=== PATIENT | female | born 1985 | race Caucasian/White ===

== ENCOUNTER 2020-03-20 05:26 | Inpatient (IN) ==
--- NOTE | 2020-03-19 12:36 | History & Physical Report ---
Date of Service March 19, 2020 Assessment & Plan (1) Previous delivery affecting : Admission and Anticipated Discharge Date Admission Date: IUP at 39 2/7 weeks for repeat C/S because of prior shoulder dystocia the procedure and it's risks were reviewed with the patient and all of her questions were answered to her satisfaction. History of Present Illness Primary Care Provider: NO PCP Patient is a 34 yo white female who presents at 39 2/7 weeks for repeat C/S. She had shoulder dystocia with her first vaginal delivery then elected to have a with her 2nd baby. She now presents for elective repeat C/S. complicated by AMA- NST's have been reactive. COVID is negative. GBS negative Allergies Allergy/AdvReac Type Severity Reaction Status Date / Time No Known Allergies Allergy Verified 03/19/20 08:37 Home Medications Home Medications Medication Instructions Recorded Confirmed Type prenat.vits,amadou,rcg-bfvi-jseeh 1 tab PO DAILY 10/28/19 03/19/20 History Patient History Medical History History of chicken pox Surgical History History of section X 1 [place] teeth removed Family History Mother Hypertension Other No family history of adverse response to anesthesia Social History Smoking Status: Never smoker Second Hand Exposure: No; Hx Alcohol Use: No Hx Substance Use: No Preferred Language: Liberian Basket Hand Weaver Required: No Beliefs That Will Affect Care: None marital status: marital status details: Andrew Parekh (37) [phone] Current Living Situation: Family Current Living Situation Comment: lives with spouse, 2 children, and parents, no pets current occupational status: unemployed Feels Safe at Home: Yes Assistive Devices: None Review of Systems All systems reviewed & are unremarkable except as noted in HPI & below Physical Exam Constitutional: WD/WN, vitals as above Respiratory: normal respiratory effort, lungs clear to auscultation Cardiovascular: RRR, no murmur, no edema Gastrointestinal (Abdomen): Inspection/Auscultation: abdomen normal to inspection and + abdominal surgical scar (well healed- low transverse) Psychiatric: A+Ox3, euthymic affect Genitourinary: OB Exam Abdomen: + fundal height and + vertex OB Exam Monitor Tracing: + category I and + normal FHT variability Coding Level of Care Code None Diagnoses Previous delivery affecting O34.219
[2020-03-20] MEDS ORDERED: LACTATED RINGER'S 1,000 ML IV SCH ×2 (05:45→09:15)
[2020-03-20] MEDS ORDERED: CITRIC ACID/SODIUM CITRATE 15 ML UDC PO SCH (06:00)
[2020-03-20] MEDS ORDERED: ceFAZolin 2000MG 2,000 MG/15 ML SYR IV SCH (06:00)
[2020-03-20 06:13] LABS: Basophils # (auto) 0.02 K/uL (0-0.2); Basophils % (auto) 0.2 %; Eosinophils # (auto) 0.15 K/uL (0-0.5); Eosinophils % (auto) 1.7 %; Hematocrit (blood only) 37.9 % (37-47); Hemoglobin 12.8 g/dL (12.0-16.0); Immature Granulocytes # (auto) 0.06 K/uL (0.00-0.02); Immature Granulocytes % (auto) 0.7 %; Lymphocytes # (auto) 2.23 K/uL (1.2-3.4); Mean Corpuscular Hemoglobin 31.8 pg (25-34); Mean Corpuscular Hgb Conc 33.8 g/dL (32-36); Mean Corpuscular Volume 94.3 fL (80-100); Mean Platelet Volume 10.6 fL (7.4-10.4); Monocytes # (auto) 0.71 K/uL (0.11-0.59); Neutrophils # (auto) 5.75 K/uL (1.4-6.5); Neutrophils % (auto) 64.4 %; Platelet Count 238 K/uL (130-400); RDW Coefficient of Variation 13.7 % (11.5-14.5); Red Blood Count 4.02 M/uL (4.2-5.4); White Blood Count 8.92 K/uL (4.8-10.8)
[2020-03-20] MEDS ORDERED: MoRPHine SULFATE PF 1 MG/ML 10 ML AMP/VIAL ONE (07:15)
[2020-03-20] MEDS ORDERED: fentaNYL citrate 100 MCG/2 ML VIAL ONE (07:15)
[2020-03-20] MEDS ORDERED: ONDANSETRON INJ 2 MG/ML 2 ML VIAL ONE (07:19)
--- NOTE | 2020-03-20 07:25 | History & Physical Bridge Note ---
Date of Service March 20, 2020 History & Physical Bridge Note I have examined the patient, reviewed the History & Physical and in the interval since the performance of the History & Physical I have noted the following changes of clinical significance: no changes noted
--- NOTE | 2020-03-20 07:27 | Anesthesiology Consultation ---
Date of Service March 20, 2020 Assessment & Plan (1) Encounter for pre-operative examination: Chart Review Chart Review: Acceptable Risk for Surgery and Patient seen in Pre Admission Testing Consults Requested none ASA ASA2 Proposed Anesthesia Anesthesia Type: Spinal Risk / Benefits Reviewed With: PT / POA / Parent / Guardian, Accepts Plan and Informed Consent Obtained History Surgery Operation Date: 03/20/20 07:30 Proposed Procedures p Section - Bethany Barillas MD, FACOG Height/Weight Height: 5 ft 9.5 in Weight: 81.647 kg Allergies Allergy/AdvReac Type Severity Reaction Status Date / Time No Known Allergies Allergy Verified 03/20/20 05:58 Medications Home Medications Medication Instructions Recorded Confirmed Last Taken prenat.vits,amadou,uvw-ovua-qetor 1 tab PO DAILY 10/28/19 03/19/20 Unknown NPO Date Last Intake of Fluids: 03/19/20 Time Last Intake of Fluids: 23:59 Date Last Intake of Solids: 03/19/20 Time Last Intake of Solids: 23:59 Past Medical History Medical History History of chicken pox Exercise / Class Metabolic Activity II 4-5 Yardwork/Stairs/Walk up hill Negative for chest pain or shortness of breath. Past Family History Family History Mother Hypertension Other No family history of adverse response to anesthesia Past Surgical History Surgical History History of section X 1 [place] teeth removed Past Anesthesia History No Hx of Anesthesia Complications History of PONV No Hx of PONV Social History Smoking Status: Never smoker Do You Dip or Chew Tobacco: No Hx Alcohol Use: No Hx Substance Use: No substance use type: does not use Review of Systems Patient denies active symptoms of GERD. Physical Exam Vital Signs Last Vital Signs Temp 36.8 C 03/20/20 06:01 Pulse 71 03/20/20 06:01 Resp 16 03/20/20 06:01 BP 120/79 03/20/20 06:01 Constitutional not obese (gravid uterus) ENMT Mouth: no TMJ abnormality and oral opening not small Thyromental Distance: > or= 3.5 Finger Breadths Mallampati Class: I Neck normal visual inspection; neck extension not limited Respiratory normal respiratory effort Auscultation: lungs clear to auscultation bilaterally Cardiovascular Rate/Rhythm: regular rate and regular rhythm Heart Sounds: no murmur Neurologic moves all extremities Motor/Sensory: no sensory deficit Psychiatric Orientation: alert and oriented x 3 Testing Laboratory Results 03/20/20 05:44
[2020-03-20 07:33] LABS: Appearance Urine Clear (Clear); Bilirubin Urine Negative (Negative); Blood Urine Negative (Negative); Color Urine Yellow; Glucose Urine UA Negative (Negative); Ketones Urine Negative (Negative); Leukocyte Esterase Urine Negative (Negative); Nitrite Urine Negative (Negative); Protein Urine Negative (Negative); Specific Gravity Urine 1.022 (1.000-1.030); Urobilinogen Urine Negative (Negative); pH Urine 5.5 (4.5-7.5)
[2020-03-20] MEDS ORDERED: KETOROLAC 30 MG/ML VIAL IV PRN (07:51)
[2020-03-20] MEDS ORDERED: HYDROmorphone INJ 0.5 MG/0.5 ML SYR IV PRN (07:51)
[2020-03-20] MEDS ORDERED: NALOXONE HCL 0.4 MG/1 ML VIAL/CARP IV PRN (07:51)
[2020-03-20] MEDS ORDERED: NALOXONE HCL 0.08 MG in SYRINGE 1.8 ML IV PRN (07:51)
[2020-03-20] MEDS ORDERED: PROMETHAZINE HCL 25 MG in SODIUM CHLORIDE 0.9% 50 ML IV PRN (07:51)
[2020-03-20] MEDS ORDERED: MoRPHine SULFATE PF 1 MG/ML 10 ML AMP/VIAL INT SPINAL ONE (07:51)
[2020-03-20] MEDS ORDERED: diphenhydrAMINE 50 MG/ML VIAL IV PRN (07:51)
[2020-03-20] MEDS ORDERED: NALOXONE HCL 1 MG in SODIUM CHLORIDE 0.9% 1000ML 1,000 ML IV PRN (07:51)
[2020-03-20] MEDS ORDERED: ONDANSETRON INJ 2 MG/ML 2 ML VIAL IV PRN (07:51)
[2020-03-20] MEDS ORDERED: ePHEDrine sulfate 50 MG/ML AMP IV PRN (07:51)
[2020-03-20] MEDS ORDERED: LACTATED RINGER'S 500 ML IV PRN (07:51)
[2020-03-20] MEDS ORDERED: DC INTRASPINAL MORPHINE SCH (08:00)
[2020-03-20] MEDS ORDERED: NO NARCOTICS OR SEDATIVES SCH (08:00)
[2020-03-20] MEDS ORDERED: SODIUM CHLORIDE 0.9% 1000ML 1,000 ML IV SCH (08:00)
[2020-03-20] MEDS ORDERED: OXYTOCIN 10 UNITS/ML VIAL ONE (08:45)
[2020-03-20] MEDS ORDERED: PHENYLEPHRINE 100MCG/ML 5ML SYR ONE (08:58)
--- NOTE | 2020-03-20 09:04 | Post Operative Brief Note ---
PG Immediate Post Op with CF Date of Surgery March 20, 2020 Pre & Post Diagnosis Operation Date: 03/20/20 07:30 Pre-Op Diagnosis: Repeat section Post-Op Diagnosis: Repeat section for living male child at 0828 I identified the patient and participated in the time-out.: Yes Procedure Operation Date: 03/20/20 07:30 Actual Procedures p Section for living male child at 0828 - Bethany Barillas MD, FACOG Surgeon Bethany Barillas MD, FACOG Wheel Lacer And Truer Paola Leo MD Estimated Blood Loss 500 Findings Consistent with Post-Op Diagnosis Specimens Specimen Description: A:placenta-hold B: cord blood Drains Garcia Catheter (inserted after spinal without difficulty. Draining clear yellow urine and to be monitored by anesthesia intraoperatively)
[2020-03-20] MEDS ORDERED: MAGNESIUM HYDROXIDE SUSP 30 ML UDC PO PRN (09:07)
[2020-03-20] MEDS ORDERED: DIPHTHERIA/TETANUS/PERTUSSIS 0.5 ML SYR/VIAL IM ONE (09:07)
[2020-03-20] MEDS ORDERED: HYDROCORTISONE ACETATE 25 MG SUPP PR PRN (09:07)
[2020-03-20] MEDS ORDERED: SUPERCREAM 0.870% 15 GM JAR EXT PRN (09:07)
[2020-03-20] MEDS ORDERED: BENZOCAINE 20% AER SPR 82.5 GM CAN EXT PRN (09:07)
[2020-03-20] MEDS ORDERED: SENNA 8.6 MG TAB PO PRN (09:07)
--- NOTE | 2020-03-20 09:29 | Anesthesiology Progress Note ---
Date of Service March 20, 2020 Anesthesia Post Procedure Vital Signs Vital Signs: Temp Pulse Resp BP Pulse Ox 03/20/20 09:27 64 100 03/20/20 09:23 54 L 117/73 03/20/20 09:22 60 99 03/20/20 09:17 67 100 03/20/20 09:12 64 117/75 100 03/20/20 06:01 36.7 C 71 16 120/79 03/20/20 05:46 71 120/79 Transfer of Care Handoff Completed per policy Notes Mental Status: alert / awake / arousable and participated in evaluation Nausea / Vomiting: adequately controlled Pain: adequately controlled Airway Patency, RR, SpO2: stable & adequate BP & HR: stable & adequate Hydration State: stable & adequate Neuraxial Anesthesia: was administered and sensory block is resolving Anesthetic Complications: no major complications apparent and Pt Satisfied with anesthetic care
[2020-03-20] MEDS: OXYTOCIN 20 UNITS in LACTATED RINGER'S 1,000 ML IV SCH ×2 (11:29→19:08)
[2020-03-20] MEDS: SIMETHICONE 80 MG CHEW PO SCH ×3 (14:04→19:51)
[2020-03-20] MEDS: DOCUSATE SODIUM 100 MG CAP PO SCH (19:51)
[2020-03-21] MEDS ORDERED: PROMETHAZINE HCL 25 MG in SODIUM CHLORIDE 0.9% 50 ML IV PRN (02:00)
[2020-03-21] MEDS ORDERED: MEPERIDINE HCL 50 MG/ML CARP IV PRN (02:00)
[2020-03-21] MEDS ORDERED: diphenhydrAMINE Capsule 25 MG CAP PO PRN (02:00)
[2020-03-21] MEDS ORDERED: KETOROLAC 30 MG/ML VIAL IV PRN (02:00)
[2020-03-21] MEDS ORDERED: diphenhydrAMINE 50 MG/ML VIAL IV PRN (02:00)
[2020-03-21] MEDS ORDERED: ACETAMINOPHEN 1000 MG/100 ML IV IV PRN (02:00)
[2020-03-21] MEDS ORDERED: ONDANSETRON INJ 2 MG/ML 2 ML VIAL IV PRN (02:00)
[2020-03-21] MEDS ORDERED: ZOLPIDEM TARTRATE 5 MG TAB PO PRN (02:00)
[2020-03-21 06:31] LABS: Basophils # (auto) 0.01 K/uL (0-0.2); Basophils % (auto) 0.1 %; Eosinophils # (auto) 0.14 K/uL (0-0.5); Eosinophils % (auto) 1.3 %; Hematocrit (blood only) 36.5 % (37-47); Hemoglobin 12.6 g/dL (12.0-16.0); Immature Granulocytes # (auto) 0.05 K/uL (0.00-0.02); Immature Granulocytes % (auto) 0.4 %; Lymphocytes # (auto) 1.18 K/uL (1.2-3.4); Lymphocytes % (auto) 10.6 %; Mean Corpuscular Hemoglobin 32.4 pg (25-34); Mean Corpuscular Hgb Conc 34.5 g/dL (32-36); Mean Corpuscular Volume 93.8 fL (80-100); Mean Platelet Volume 10.2 fL (7.4-10.4); Monocytes # (auto) 1.08 K/uL (0.11-0.59); Monocytes % (auto) 9.7 %; Neutrophils % (auto) 77.9 %; Platelet Count 210 K/uL (130-400); RDW Coefficient of Variation 13.5 % (11.5-14.5); RDW Standard Deviation 45.8 fL (36.4-46.3); Red Blood Count 3.89 M/uL (4.2-5.4); White Blood Count 11.16 K/uL (4.8-10.8)
--- NOTE | 2020-03-21 06:58 | Obstetrical Progress Note ---
Date of Service <Vicki Lydia Rees DO - Last Filed: 03/21/20 07:34> March 21, 2020 Assessment & Plan <Vicki Lydia Rees DO - Last Filed: 03/21/20 07:34> (1) state: - PNL: Rh pos, RI, GBS neg, COVID neg - Feels well today. Eating well, voiding well, ambulating well. - Pain well controlled with ibuprofen 600mg Q4H PRN - Routine care -- OOB, ambulation, diet progression as tolerated - After discharge will have 6 week follow-up with Dr. Farah. Subjective <Vicki Lydia Rees DO - Last Filed: 03/21/20 07:34> Rosie Parekh is a 34 y/o female who is POD #1 following elective repeat c- section delivery at 39 and 3/7 weeks. She reports feeling well overall this morning. Mild abdominal cramping and 2/10 pain well managed on analgesics. Patient has not yet voided independently as the sosa catheter was just removed approximately 1 hour ago. She has been tolerating clears overnight without difficulty, nausea, or vomiting. Patient has not yet been OOB to ambulate since delivery. Not yet passing gas. Has persistent lochia with some improvement this morning. Currently . Addendum: on re-evaluation at 729, patient states that she has ambulated to the bathroom and voided without difficulty. Review of Systems Denies fever or chills. Denies shortness of breath or cough. Denies chest pain. Denies breast pain. Denies dysuria. Denies leg pain or leg swelling. Denies headache or changes in vision. Physical Exam <Vicki Rees DO - Last Filed: 03/21/20 07:34> General: Alert, oriented. No acute distress. Cardiac: Regular rate and rhythm. No murmurs. Respiratory: Clear to auscultation bilaterally a/p, no wheezes/rales/rhonchi. No increased work of breathing. Symmetrical chest rise. No respiratory distress. Abdomen: Soft, nontender, nondistended. Bowel sounds present. Uterus: Uterine fundus firm, palpable 2 cm below umbilicus. Surgical scar clean and healing well. Lower Extremities: No lower extremity edema or swelling. No deep calf pain. Bj's negative bilaterally. Results & Data ([facility]) <Vicki Rees, - Last Filed: 03/21/20 07:34> Vital Signs (Past 12 Hours) Vital Signs Temp Pulse Resp BP Pulse Ox 03/21/20 04:50 36.8 C 72 18 125/73 99 03/21/20 02:35 18 97 03/21/20 01:30 18 98 03/21/20 00:30 18 98 03/20/20 23:25 36.5 C 85 20 131/76 98 03/20/20 22:35 18 100 03/20/20 21:30 17 99 03/20/20 20:10 18 98 03/20/20 19:30 36.7 C 66 18 121/78 100 Laboratory Results 03/21/20 03/20/20 03/20/20 Range/Units 06:20 05:50 05:43 WBC 11.16 H (4.8-10.8) K/uL RBC 3.89 L (4.2-5.4) M/uL Hgb 12.6 (12.0-16.0) g/dL Hct 36.5 L (37-47) % MCV 93.8 (80-100) fL MCH 32.4 (25-34) pg MCHC 34.5 (32-36) g/dL RDW Std Deviation 45.8 (36.4-46.3) fL RDW Coeff of Shilpa 13.5 (11.5-14.5) % Plt Count 210 (130-400) K/uL MPV 10.2 (7.4-10.4) fL Immature Gran % (Auto) 0.4 % Neut % (Auto) 77.9 % Lymph % (Auto) 10.6 % [place] % (Auto) 9.7 % Eos % (Auto) 1.3 % Baso % (Auto) 0.1 % Neut # (Auto) 8.70 H (1.4-6.5) K/uL Lymph # (Auto) 1.18 L (1.2-3.4) K/uL [place] # (Auto) 1.08 H (0.11-0.59) K/uL Eos # (Auto) 0.14 (0-0.5) K/uL Baso # (Auto) 0.01 (0-0.2) K/uL Immature Gran # (Auto) 0.05 H (0.00-0.02) K/uL Urine Color Yellow Urine Appearance Clear (Clear) Urine pH 5.5 (4.5-7.5) Ur Specific [place] 1.022 (1.000-1.030) Urine Protein Negative (Negative) Urine Glucose (UA) Negative (Negative) Urine Ketones Negative (Negative) Urine Blood Negative (Negative) Urine Nitrite Negative (Negative) Urine Bilirubin Negative (Negative) Urine Urobilinogen Negative (Negative) Ur Leukocyte Esterase Negative (Negative) Blood Type A Positive Antibody Screen NEGATIVE <Bethany Barillas MD, FACOG - Last Filed: 03/21/20 07:48> Co-Signing Physician Notes Resident Physician Supervision Note: I was present with Dr. Rees during the history and exam. I discussed the case with the resident and agree with the findings and plan as documented in the note. Any exceptions or clarifications are listed here: [None] Documented By: Bethany Barillas MD, FACOG Resident Activity Tracking <Vicki Rees, DO - Last Filed: 03/21/20 07:34> Resident Involvement: Resident Care Provided Care Provided: OB Delivery
[2020-03-21] MEDS: OXYTOCIN 20 UNITS in LACTATED RINGER'S 1,000 ML IV SCH (07:21)
[2020-03-21] MEDS: SIMETHICONE 80 MG CHEW PO SCH ×4 (08:25→20:47)
[2020-03-21] MEDS: FERROUS SULFATE 325 MG TAB PO SCH (08:25)
[2020-03-21] MEDS: PRENATAL VITAMIN 1 TAB PO SCH (08:25)
[2020-03-21] MEDS: DOCUSATE SODIUM 100 MG CAP PO SCH ×2 (08:25→20:47)
--- NOTE | 2020-03-21 13:34 | Operative Report (OR) ---
DATE OF OPERATION: 03/20/2020 SURGEON: Bethany Farah MD. FINANCIAL ADMINISTRATOR: Gustavo Leo MD. PREOPERATIVE DIAGNOSES: Intrauterine at term, prior section, requesting repeat section. POSTOPERATIVE DIAGNOSES: Intrauterine at term, prior section, requesting repeat section, delivery of a viable male infant, 7 pounds 4 ounces. PROCEDURE: Repeat low transverse section. HISTORY: The patient is a 34-year-old -0-0-2 white female who presents at 39-2/7 weeks for repeat section. Her first delivery was vaginal but was complicated by severe shoulder dystocia. The patient was requesting a repeat section after she had had a section for her last delivery. She understands the risks of procedure and is willing to proceed. ESTIMATED BLOOD LOSS: 500 mL. ANESTHESIA: Subarachnoid block. GROSS FINDINGS: Uterus is gravid and consistent with a term in size. Bilateral ovaries and fallopian tubes are grossly normal. DESCRIPTION OF PROCEDURE: After the patient received adequate subarachnoid block, she was prepped and draped in the usual sterile fashion. A low transverse skin incision was made through a prior scar and carried to the fascia with the same scalpel. The fascial incision was then extended with Goss scissors. The edges were then grasped with Ryan clamps and the underlying rectus muscles were bluntly and sharply dissected off of the overlying fascia. The rectus muscles were bluntly divided along the midline and the peritoneum was also entered bluntly. The bladder flap was developed with Metzenbaum scissors and placed behind the bladder blade. The lower uterine segment was noted to be thin and this was entered with the scalpel and extended transversely. Membranes were ruptured for clear fluid. The was delivered from the vertex presentation with moderate fundal pressure. There was spontaneous crying upon delivery of the head. The infant was vigorous upon delivery of the rest of the . The cord was clamped and cut, and the was handed off to Dr. Caballero who was in attendance as a defensive fire control systems operator. Of note, there was a true knot in the cord. The placenta was manually removed and the uterus was exteriorized and covered with a clean lap sponge. The uterine cavity was explored and found to be free of any retained tissue. The uterine incision was closed in 2 layers in a running locking imbricating fashion with 0 Monocryl. Hemostasis was noted to be excellent. The posterior cul-de-sac was irrigated with normal saline. The incision was examined once more and continued to have excellent hemostasis. The uterus was then placed back inside the abdominal cavity. The gutters were checked for any retained tissue or fluid. The incision was examined once more and continued to have excellent hemostasis. After irrigating the anterior cul-de-sac, the rectus muscles were closed in individual stitches of 0 Monocryl. The fascia was reapproximated using a running stitch of 0 Vicryl. After irrigating the adipose layer, the skin edges were reapproximated using a subcuticular stitch of 4-0 Vicryl. Urine was clear at the end of the case. Mother and were doing well after delivery. I attest to the content of the Intraoperative Record and any orders documented therein. Any exception s are noted below.
[2020-03-21] MEDS: IBUPROFEN 600 MG TAB PO PRN (18:15)
[2020-03-21] MEDS ORDERED: bisacodyL 5 MG TABEC PO SCH (20:00)
[2020-03-21] MEDS: oxyCODONE/ACETAMINOPHEN 5mg/325mg TAB PO PRN (20:47)
[2020-03-22 06:32] LABS: Hematocrit (blood only) 37.2 % (37-47); Hemoglobin 12.5 g/dL (12.0-16.0)
[2020-03-22] MEDS: PRENATAL VITAMIN 1 TAB PO SCH (07:52)
[2020-03-22] MEDS: FERROUS SULFATE 325 MG TAB PO SCH (07:52)
[2020-03-22] MEDS: DOCUSATE SODIUM 100 MG CAP PO SCH ×2 (07:52→21:39)
[2020-03-22] MEDS: oxyCODONE/ACETAMINOPHEN 5mg/325mg TAB PO PRN ×2 (07:52→13:29)
[2020-03-22] MEDS: IBUPROFEN 600 MG TAB PO PRN ×4 (07:53→19:30)
--- NOTE | 2020-03-22 08:34 | Obstetrical Progress Note ---
Date of Service March 22, 2020 Assessment & Plan (1) state: -Discussed strategies for p.o. pain medication -We will institute these changes today -Continue with routine postoperative care Subjective Patient has not been taking her pain medication. She is very uncomfortable. Physical Exam Constitutional WD/WN, vitals as above Respiratory normal respiratory effort, lungs clear to auscultation Cardiovascular RRR, no murmur, no edema Gastrointestinal (Abdomen) Incision intact, appropriate post-op tenderness Musculoskeletal (-) deep calf tenderness Results & Data ([facility]) Vital Signs (Past 12 Hours) Vital Signs Temp Pulse Resp BP 03/22/20 00:25 97.3 F L 68 18 109/68
[2020-03-22] MEDS ORDERED: bisacodyL 10 MG SUPP PR PRN (09:07)
[2020-03-22] MEDS: SIMETHICONE 80 MG CHEW PO SCH ×4 (09:33→21:39)
[2020-03-22 19:59] VITALS: O2SAT 99
[2020-03-23] MEDS: IBUPROFEN 600 MG TAB PO PRN ×2 (02:36→08:03)
[2020-03-23] MEDS: oxyCODONE/ACETAMINOPHEN 5mg/325mg TAB PO PRN ×2 (02:37→08:03)
--- NOTE | 2020-03-23 06:50 | Obstetrical Progress Note ---
Date of Service <Vicki ReyRoni ReesDO - Last Filed: 03/23/20 06:50> March 23, 2020 Assessment & Plan <Vicki Freeman AbaDO randy - Last Filed: 03/23/20 06:50> (1) state: - PNL: Rh pos, RI, GBS neg, COVID neg - Feels well today. Eating well, voiding well, ambulating well. - Patient states that she realized she "shouldn't be a hero" with the pain and that the pain is very well controlled with Percocet 5/325 q4h prn and Motrin 60 0mg q4h prn. Continue pain control prn. - Routine care -- continue OOB, ambulation, and full diet progression as tolerated - After discharge will have 6 week follow-up with Dr. Farah. - Will plan for d/c home today. Subjective <Vicki ReyRoni Rees - Last Filed: 03/23/20 06:50> Rosie Parekh is a 34 y/o female who is POD #3 following delivery at 39 and 3/7 weeks. She reports feeling well overall this morning. Minimal abdominal cramping and 0-1/10 pain well managed on analgesics. Voiding without dysuria. Tolerating meals overnight without difficulty, nausea, or vomiting. Patient has been able to ambulate some. She is passing gas. Has persistent lochia with some improvement this morning. Currently . Review of Systems Denies fever or chills. Denies shortness of breath or cough. Denies chest pain. Denies breast pain. Denies dysuria. Denies leg pain or leg swelling. Denies headache or changes in vision. Physical Exam <Vicki Lydia Rees - Last Filed: 03/23/20 06:50> General: Alert, oriented. No acute distress. Cardiac: Regular rate and rhythm. No murmurs. Respiratory: Clear to auscultation bilaterally a/p, no wheezes/rales/rhonchi. No increased work of breathing. Symmetrical chest rise. No respiratory distress. Abdomen: Soft, nontender, nondistended. Bowel sounds present. Uterus: Uterine fundus firm, palpable 3 cm below umbilicus. Surgical scar clean and healing well. Lower Extremities: No lower extremity edema or swelling. No deep calf pain. Bj's negative bilaterally. Results & Data ([facility]) <Vicki Rees DO - Last Filed: 03/23/20 06:50> Vital Signs (Past 12 Hours) Vital Signs Temp Pulse Resp BP Pulse Ox 03/23/20 04:00 37.0 C 70 18 126/78 03/23/20 01:00 36.6 C 88 18 143/90 H 03/22/20 19:40 36.6 C 76 18 117/74 99 <Gustavo Leo Jr, MD, FACOG - Last Filed: 03/23/20 07:00> Co-Signing Physician Notes Resident Physician Supervision Note: I was present with Dr. Rees during the history and exam. I discussed the case with the resident and agree with the findings and plan as documented in the note. Any exceptions or clarifications are listed here: Patient doing much better with pain control. Desires d/c. Instructions given and Rx sent. F/u in 6 weeks for PP check. Documented By: Gustavo Leo Jr, MD, FACOG Resident Activity Tracking <Vicki Rees DO - Last Filed: 03/23/20 06:50> Resident Involvement: Resident Care Provided Care Provided: OB Delivery
[2020-03-23] MEDS: SIMETHICONE 80 MG CHEW PO SCH (08:02)
[2020-03-23] MEDS: DOCUSATE SODIUM 100 MG CAP PO SCH (08:03)
[2020-03-23] MEDS: FERROUS SULFATE 325 MG TAB PO SCH (08:03)
[2020-03-23] MEDS: PRENATAL VITAMIN 1 TAB PO SCH (08:03)
[2020-03-23 08:31] VITALS: BP 131/86; PULSE 61; TEMP 98.1
--- NOTE | 2020-03-26 02:42 | Discharge Summary (DS) ---
PRINCIPAL DIAGNOSIS: Intrauterine at term, prior section. PRINCIPAL PROCEDURE: Repeat low transverse section. HISTORY: The patient is a 34-year-old 3, para 2-0-0-2, white female who presents at 39 weeks for repeat section. She had a vaginal delivery with her first , which resulted in a severe shoulder dystocia. She had a primary section with her last and is now requesting repeat section again. She underwent the repeat low transverse section without any complications. She remained afebrile throughout her hospital course. She remained afebrile through her hospital stay, was eating regular diet on her 1st postop day, ambulating and voiding without difficulty as well. Pain medications worked well to control her discomfort. She was sent home in good condition. Hemoglobin on admission was 12.8, hematocrit of 37.9. First postop day, hemoglobin 12.6, hematocrit 36.5. Second postop day, hemoglobin 12.8, hematocrit 37.2. She was sent home in good condition with prescriptions for Percocet 1-2 tablets p.o. q. 4 hours p.r.n. pain, Motrin 600 mg p.o. q. 6 hours p.r.n. pain. She is to be seen in the office in 6 weeks for followup visit. She is to call for temperature of 101 degrees or higher, heavy vaginal bleeding, burning with urination, increased redness or drainage in her incision, calf tenderness or any other concerns.
== END 2020-03-23 10:05 | disposition home or self-care (01) | DRG 788 ==
LOC: 4S1 05:26 → EDSTATUS 07:30 → 4S2 12:39